=== PATIENT | male | born 2000 | race Caucasian/White ===

== ENCOUNTER 2023-03-10 22:51 | Inpatient (IN) | payer MEDICAID, OTHER ==
[~2023-03-10] VITALS: Ht 185.4 cm; Wt 87.9 kg
[2023-03-10] MEDS ORDERED: ACETAMINOPHEN TAB 650MG DOSE (2X325MG) PO ONE (23:10)
[2023-03-10] MEDS ORDERED: NS 2,600 ML in IV 1 EA IV ONE (23:10)
[2023-03-10] MEDS ORDERED: IBUPROFEN 800 MG TAB PO ONE (23:10)
[2023-03-10] MEDS ORDERED: PIPERACILLIN/TAZOBACTAM SOD 4.5 GM in D5W MINI-BAG PLUS 50 ML IV ONE (23:40)
[2023-03-11] VITALS (8 sets, daily range): BP systolic 90–145; BP diastolic 60–82; TEMP 96.6–99.9; O2SAT 94–100
[2023-03-11 00:20] LABS: ETHYL ALCOHOL (ETHANOL) < 0.003 % (0.000-0.010)
[2023-03-11 00:22] LABS: SALICYLATE LEVEL < 3.0 MG/DL (<30)
[2023-03-11 00:29] LABS: PROCALCITONIN 1.98 ng/ml
[2023-03-11 00:32] LABS: ALBUMIN 1.9 G/DL (3.2-5.2); ALKALINE PHOSPHATASE 94 U/L (46-116); ALT/SGPT 41 U/L (7.0-40); AST/SGOT 67 U/L (<34); BILIRUBIN,TOTAL 0.4 MG/DL (0.3-1.2); BLOOD UREA NITROGEN 17 MG/DL (9-23); CALCIUM LEVEL 8.1 MG/DL (8.5-10.1); CARBON DIOXIDE LEVEL 28 MMOL/L (20-31); CHLORIDE LEVEL 94 MMOL/L (98-107); CREATININE FOR GFR 0.82 MG/DL (0.70-1.30); GLOMERULAR FILTRATION RATE > 60.0 (>60); GLUCOSE, FASTING 123 MG/DL (60-100); POTASSIUM SERUM 3.2 MMOL/L (3.5-5.1); SODIUM LEVEL 130 MMOL/L (136-145); TOTAL PROTEIN 6.6 G/DL (5.7-8.2)
[2023-03-11 00:50] LABS: BASO % 0.2 % (0.0-1.0); EOS % 0.2 % (0.0-3.0); HEMATOCRIT 25.6 % (42.0-52.0); HEMOGLOBIN 8.2 g/dl (13.5-17.5); LYMPH # 1.1 10^3/uL (1.5-5.0); LYMPH % 8.4 % (24.0-44.0); MEAN CORPUSCULAR HEMOGLOBIN 24.8 pg (27.0-33.0); MEAN CORPUSCULAR VOLUME 77.6 fl (80.0-96.0); MONO # 0.7 10^3/uL (0.0-0.8); MONO % 5.4 % (2.0-8.0); NEUTROPHILS # 10.8 10^3/uL (1.5-8.5); NEUTROPHILS % 84.9 % (36.0-66.0); WHITE BLOOD COUNT 12.7 10^3/uL (4.0-10.0)
[2023-03-11 00:51] LABS: PLATELET COUNT, AUTOMATED 98 10^3/uL (150-450)
[2023-03-11 01:11] LABS: BARBITURATES URINE NEGATIVE (NEGATIVE); COCAINE METABOLITE URINE NEGATIVE (NEGATIVE)
[2023-03-11 01:12] LABS: CANNABINOIDS URINE NEGATIVE (NEGATIVE); METHADONE URINE NEGATIVE (NEGATIVE); OPIATES URINE NEGATIVE (NEGATIVE); PHENCYCLIDINE URINE NEGATIVE (NEGATIVE)
[2023-03-11 01:15] LABS: AMPHETAMINES LEVEL URINE POSITIVE (NEGATIVE); BENZODIAZEPINES URINE POSITIVE (NEGATIVE)
[2023-03-11] MEDS ORDERED: VANCOMYCIN HCL 1,250 MG, VIAL MATE ADAPTER 1 EACH in D5W 250 ML IV SCH (02:15)
[2023-03-11] MEDS ORDERED: VANCOMYCIN HCL 1,000 MG, VIAL MATE ADAPTER 1 EACH in D5W 250 ML IV ONE (03:00)
[2023-03-11] MEDS ORDERED: VANCOMYCIN HCL 750 MG, VIAL MATE ADAPTER 1 EACH in D5W 250 ML IV ONE (04:00)
[2023-03-11] MEDS ORDERED: NICOTINE 14 MG/24 HR TRANSDERMAL TD PRN (04:05)
[2023-03-11] MEDS: KCL 10MEQ/100ML SWI (KRUN) 10 MEQ in IV 1 EA IV SCH ×4 (05:30→14:34)
[2023-03-11] MEDS: POTASSIUM CHLORIDE 10MEQ SR TABLET PO ONE ×2 (05:54→06:25)
[2023-03-11 07:04] LABS: BASO % 0.1 % (0.0-1.0); EOS % 0.3 % (0.0-3.0); HEMATOCRIT 23.9 % (42.0-52.0); HEMOGLOBIN 7.6 g/dl (13.5-17.5); LYMPH # 2.1 10^3/uL (1.5-5.0); LYMPH % 13.1 % (24.0-44.0); MEAN CORPUSCULAR HEMOGLOBIN 25.2 pg (27.0-33.0); MEAN CORPUSCULAR HGB CONC 31.8 g/dl (32.0-36.5); MEAN CORPUSCULAR VOLUME 79.1 fl (80.0-96.0); MONO # 1.3 10^3/uL (0.0-0.8); MONO % 8.2 % (2.0-8.0); NEUTROPHILS # 12.1 10^3/uL (1.5-8.5); NEUTROPHILS % 76.7 % (36.0-66.0); RED BLOOD COUNT 3.02 10^6/uL (4.30-6.10); WHITE BLOOD COUNT 15.8 10^3/uL (4.0-10.0)
[2023-03-11 07:10] LABS: PLATELET COUNT, AUTOMATED 89 10^3/uL (150-450)
[2023-03-11 07:56] LABS: HIV 1&2 SCREEN NEGATIVE (NEGATIVE)
[2023-03-11 08:33] LABS: BLOOD UREA NITROGEN 16 MG/DL (9-23); CALCIUM LEVEL 6.8 MG/DL (8.5-10.1); CARBON DIOXIDE LEVEL 28 MMOL/L (20-31); CHLORIDE LEVEL 97 MMOL/L (98-107); CREATININE FOR GFR 0.88 MG/DL (0.70-1.30); GLOMERULAR FILTRATION RATE > 60.0 (>60); GLUCOSE, FASTING 131 MG/DL (60-100); POTASSIUM SERUM 2.4 MMOL/L (3.5-5.1); SODIUM LEVEL 132 MMOL/L (136-145)
[2023-03-11 08:37] LABS: HEPATITIS C VIRUS ABY INDEX > 11.00 INDEX (<0.8)
[2023-03-11] MEDS: NYSTATIN 500,000U/5ML SUSP UDC SS SCH ×4 (08:45→21:59)
[2023-03-11] MEDS ORDERED: HOME MED LIST COMPLETE! XX SCH (09:25)
[2023-03-11] MEDS ORDERED: PIPERACILLIN/TAZOBACTAM SOD 4.5 GM in D5W MINI-BAG PLUS 50 ML IV SCH (10:00)
[2023-03-11] MEDS ORDERED: POTASSIUM CHLORIDE 10MEQ SR TABLET PO ONE ×2 (10:15→11:50)
[2023-03-11] MEDS ORDERED: ISOVUE-370 76% 100ML VIAL As Ordered ONE (11:35)
[2023-03-11 12:28] LABS: MAGNESIUM LEVEL 1.9 MG/DL (1.8-2.4)
[2023-03-11] MEDS ORDERED: LIDOCAINE 1% MDV 20ML VIAL As Ordered ONE (12:53)
[2023-03-11] MEDS ORDERED: VANCOMYCIN HCL 750 MG, VIAL MATE ADAPTER 1 EACH in D5W 250 ML IV SCH (13:00)
[2023-03-11] MEDS ORDERED: VANCOMYCIN HCL 500 MG in D5W MINI-BAG PLUS 100 ML IV SCH (14:00)
[2023-03-11] MEDS ORDERED: HEPARIN SOD (PORCINE) 5000UNITS/ML 1ML VIAL/SYRINGE SC SCH (14:00)
[2023-03-11] MEDS ORDERED: HEPARIN SOD (PORCINE) 5000UNITS/ML 1ML VIAL/SYRINGE IV PRN (14:05)
[2023-03-11] MEDS ORDERED: MORPHINE 4 MG/ML 1ML VIAL IV ONE (14:15)
[2023-03-11] MEDS ORDERED: KCL 10MEQ IN STERILE WATER 100ML As Ordered ONE (14:26)
[2023-03-11] MEDS: VANCOMYCIN HCL 1,000 MG, VIAL MATE ADAPTER 1 EACH in D5W 250 ML IV SCH ×2 (14:34→21:59)
[2023-03-11] MEDS ORDERED: SODIUM CHLORIDE 0.9% INJ 10 ML SYR IV PRN (14:55)
[2023-03-11] MEDS ORDERED: HEPARIN DRIP 25,000 UNITS in IV 1 EA IV SCH (15:00)
[2023-03-11] MEDS ORDERED: HYDROMORPHONE HCL 0.5 MG/ 0.5 ML SYRINGE IV ONE (17:45)
[2023-03-11] MEDS ORDERED: SODIUM CHLORIDE 0.9% INJ 10 ML SYR IV SCH (18:00)
[2023-03-11 18:44] LABS: HEMATOCRIT 24.7 % (42.0-52.0); MEAN CORPUSCULAR HEMOGLOBIN 25.3 pg (27.0-33.0); MEAN CORPUSCULAR HGB CONC 32.4 g/dl (32.0-36.5); MEAN CORPUSCULAR VOLUME 78.2 fl (80.0-96.0); PLATELET COUNT, AUTOMATED 127 10^3/uL (150-450); RED BLOOD COUNT 3.16 10^6/uL (4.30-6.10); WHITE BLOOD COUNT 18.1 10^3/uL (4.0-10.0)
[2023-03-11 18:52] LABS: INR 1.45; PROTHROMBIN TIME 17.2 SECONDS (12.5-14.5)
[2023-03-11 18:53] LABS: PARTIAL THROMBOPLASTIN TIME 31.3 SECONDS (24.8-34.2)
[2023-03-11 18:57] LABS: D-DIMER QUANT 3.18 ug/mL (<0.5)
[2023-03-11 19:11] LABS: LDH LACTATE DEHYDROGENASE 297 U/L (120-246)
[2023-03-11 19:13] LABS: ALBUMIN 1.7 G/DL (3.2-5.2); ALKALINE PHOSPHATASE 91 U/L (46-116); ALT/SGPT 26 U/L (7.0-40); AST/SGOT 32 U/L (<34); BILIRUBIN,DIRECT 0.2 MG/DL (<0.4); BILIRUBIN,TOTAL 0.4 MG/DL (0.3-1.2); BLOOD UREA NITROGEN 12 MG/DL (9-23); CALCIUM LEVEL 7.4 MG/DL (8.5-10.1); CARBON DIOXIDE LEVEL 24 MMOL/L (20-31); CHLORIDE LEVEL 100 MMOL/L (98-107); CREATININE FOR GFR 0.68 MG/DL (0.70-1.30); GLOMERULAR FILTRATION RATE > 60.0 (>60); GLUCOSE, FASTING 130 MG/DL (60-100); POTASSIUM SERUM 3.2 MMOL/L (3.5-5.1); SODIUM LEVEL 133 MMOL/L (136-145); TOTAL PROTEIN 5.8 G/DL (5.7-8.2)
[2023-03-12 04:00] VITALS: BP 106/61; TEMP 98.7; O2SAT 92
[2023-03-12 04:43] LABS: BASO # 0.1 10^3/uL (0.0-0.2); BASO % 0.3 % (0.0-1.0); EOS % 0.1 % (0.0-3.0); HEMATOCRIT 24.6 % (42.0-52.0); LYMPH # 2.5 10^3/uL (1.5-5.0); LYMPH % 13.2 % (24.0-44.0); MEAN CORPUSCULAR HEMOGLOBIN 25.6 pg (27.0-33.0); MEAN CORPUSCULAR HGB CONC 32.5 g/dl (32.0-36.5); MEAN CORPUSCULAR VOLUME 78.8 fl (80.0-96.0); MONO % 9.6 % (2.0-8.0); NEUTROPHILS # 14.2 10^3/uL (1.5-8.5); NEUTROPHILS % 75.2 % (36.0-66.0); PLATELET COUNT, AUTOMATED 133 10^3/uL (150-450); RED BLOOD COUNT 3.12 10^6/uL (4.30-6.10); WHITE BLOOD COUNT 18.9 10^3/uL (4.0-10.0)
[2023-03-12 05:08] LABS: MONO # 1.8 10^3/uL (0.0-0.8)
[2023-03-12 05:25] LABS: ALBUMIN 1.6 G/DL (3.2-5.2); ALKALINE PHOSPHATASE 82 U/L (46-116); ALT/SGPT 22 U/L (7.0-40); AST/SGOT 26 U/L (<34); BILIRUBIN,TOTAL 0.7 MG/DL (0.3-1.2); BLOOD UREA NITROGEN 9 MG/DL (9-23); CALCIUM LEVEL 7.1 MG/DL (8.5-10.1); CARBON DIOXIDE LEVEL 26 MMOL/L (20-31); CHLORIDE LEVEL 98 MMOL/L (98-107); CREATININE FOR GFR 0.72 MG/DL (0.70-1.30); GLOMERULAR FILTRATION RATE > 60.0 (>60); GLUCOSE, FASTING 103 MG/DL (60-100); MAGNESIUM LEVEL 1.6 MG/DL (1.8-2.4); POTASSIUM SERUM 3.2 MMOL/L (3.5-5.1); SODIUM LEVEL 129 MMOL/L (136-145); TOTAL PROTEIN 5.5 G/DL (5.7-8.2)
[2023-03-12] MEDS: VANCOMYCIN HCL 1,000 MG, VIAL MATE ADAPTER 1 EACH in D5W 250 ML IV SCH ×3 (05:58→21:49)
[2023-03-12 08:00] VITALS: BP 102/62; TEMP 97.8; O2SAT 95
[2023-03-12] MEDS ORDERED: MAG SULF 1GM/100ML (MAG RUN) 1 GM in IV 1 EA IV ONE (08:00)
[2023-03-12 08:09] LABS: HEPATITIS B CORE ANTIBODY IGG Negative (Negative)
[2023-03-12] MEDS ORDERED: INFLUENZA QUADRIVALENT PF VACCINE 0.5ML SYRINGE IM.IMMUN ONE (09:00)
[2023-03-12] MEDS: HYDROMORPHONE HCL 0.5 MG/ 0.5 ML SYRINGE IV PRN (10:08)
[2023-03-12] MEDS: KCL 10MEQ/100ML SWI (KRUN) 10 MEQ in IV 1 EA IV SCH ×4 (10:14→16:05)
[2023-03-12] MEDS: NYSTATIN 500,000U/5ML SUSP UDC SS SCH ×4 (10:14→21:49)
[2023-03-12 11:07] LABS: PROCALCITONIN 1.25 ng/ml
[2023-03-12 12:00] VITALS: BP 99/54; TEMP 97.9; O2SAT 100
[2023-03-12 16:00] VITALS: BP 95/59; TEMP 97.8; O2SAT 97
[2023-03-12] MEDS ORDERED: ACETAMINOPHEN *IV* 1,000 MG in IV 1 EA IV ONE (20:20)
[2023-03-12 20:30] VITALS: BP 117/63; TEMP 103.1; O2SAT 95
[2023-03-12 21:50] VITALS: TEMP 101.2
[2023-03-13] VITALS (10 sets, daily range): BP systolic 94–125; BP diastolic 50–66; TEMP 97.3–102.7; O2SAT 94–98
[2023-03-13] MEDS: VANCOMYCIN HCL 1,000 MG, VIAL MATE ADAPTER 1 EACH in D5W 250 ML IV SCH ×2 (05:38→13:43)
[2023-03-13] MEDS: HYDROMORPHONE HCL 0.5 MG/ 0.5 ML SYRINGE IV PRN ×6 (05:43→23:42)
[2023-03-13 06:40] LABS: HEMATOCRIT 25.8 % (42.0-52.0); HEMOGLOBIN 8.4 g/dl (13.5-17.5); MEAN CORPUSCULAR HEMOGLOBIN 25.9 pg (27.0-33.0); MEAN CORPUSCULAR HGB CONC 32.6 g/dl (32.0-36.5); MEAN CORPUSCULAR VOLUME 79.6 fl (80.0-96.0); PLATELET COUNT, AUTOMATED 186 10^3/uL (150-450); RED BLOOD COUNT 3.24 10^6/uL (4.30-6.10); WHITE BLOOD COUNT 15.8 10^3/uL (4.0-10.0)
[2023-03-13 06:43] LABS: BLOOD UREA NITROGEN 8 MG/DL (9-23); CALCIUM LEVEL 7.6 MG/DL (8.5-10.1); CARBON DIOXIDE LEVEL 24 MMOL/L (20-31); CHLORIDE LEVEL 103 MMOL/L (98-107); CREATININE FOR GFR 0.63 MG/DL (0.70-1.30); GLOMERULAR FILTRATION RATE > 60.0 (>60); GLUCOSE, FASTING 141 MG/DL (60-100); MAGNESIUM LEVEL 1.8 MG/DL (1.8-2.4); POTASSIUM SERUM 3.7 MMOL/L (3.5-5.1); SODIUM LEVEL 136 MMOL/L (136-145)
[2023-03-13] MEDS ORDERED: SODIUM CHLORIDE 0.9% INJ 10 ML SYR IV PRN (07:00)
[2023-03-13] MEDS: ACETAMINOPHEN TAB 650MG DOSE (2X325MG) PO PRN ×2 (07:16→19:47)
[2023-03-13 07:40] LABS: ATYPICAL LYMPH 1 % (0-5); BASOPHILS 1 % (0-1); LYMPHOCYTES 8 % (16-44); MONOCYTES 5 % (0-5); NEUTROPHILS 85 % (28-66)
[2023-03-13 07:41] LABS: MICROCYTOSIS 1+; OVALOCYTES 1+
[2023-03-13 07:42] LABS: HYPOCHROMASIA 1+
[2023-03-13 07:43] LABS: PLATELET ESTIMATE NORMAL (NORMAL)
[2023-03-13] MEDS: NYSTATIN 500,000U/5ML SUSP UDC SS SCH ×4 (09:02→19:59)
[2023-03-13] MEDS: ENOXAPARIN 40MG/0.4ML SYRINGE (J1650 PER 10MG) SC SCH (10:31)
[2023-03-13] MEDS ORDERED: ISOVUE-370 76% 100ML VIAL As Ordered ONE (16:16)
[2023-03-13] MEDS: ceFAZolin SOD 2 GM in IV 1 EA IV SCH (18:45)
[2023-03-13] MEDS ORDERED: MICAFUNGIN SODIUM 150 MG in D5W MINI-BAG PLUS 100 ML IV SCH (20:00)
[2023-03-13] MEDS ORDERED: MICAFUNGIN SODIUM 150 MG in D5W 100 ML IV SCH (20:00)
[2023-03-13] MEDS: SODIUM CHLORIDE 0.9% INJ 10 ML SYR IV SCH (23:38)
[2023-03-14] MEDS: ceFAZolin SOD 2 GM in IV 1 EA IV SCH (02:47)
[2023-03-14 02:50] VITALS: TEMP 101.6
[2023-03-14] MEDS: ACETAMINOPHEN TAB 650MG DOSE (2X325MG) PO PRN (02:55)
[2023-03-14] MEDS: HYDROMORPHONE HCL 0.5 MG/ 0.5 ML SYRINGE IV PRN ×3 (02:59→09:46)
[2023-03-14 04:00] VITALS: BP 110/61; TEMP 100.9; O2SAT 93
[2023-03-14] MEDS: SODIUM CHLORIDE 0.9% INJ 10 ML SYR IV SCH (06:06)
[2023-03-14 06:15] LABS: BASO # 0.1 10^3/uL (0.0-0.2); BASO % 0.4 % (0.0-1.0); EOS # 0.1 10^3/uL (0.0-0.5); EOS % 0.7 % (0.0-3.0); HEMATOCRIT 22.2 % (42.0-52.0); HEMOGLOBIN 7.1 g/dl (13.5-17.5); LYMPH # 2.4 10^3/uL (1.5-5.0); LYMPH % 16.8 % (24.0-44.0); MEAN CORPUSCULAR HEMOGLOBIN 25.6 pg (27.0-33.0); MEAN CORPUSCULAR VOLUME 80.1 fl (80.0-96.0); MONO # 1.4 10^3/uL (0.0-0.8); MONO % 10.2 % (2.0-8.0); NEUTROPHILS % 70.9 % (36.0-66.0); PLATELET COUNT, AUTOMATED 209 10^3/uL (150-450); RED BLOOD COUNT 2.77 10^6/uL (4.30-6.10); WHITE BLOOD COUNT 14.1 10^3/uL (4.0-10.0)
[2023-03-14 06:33] LABS: BLOOD UREA NITROGEN 7 MG/DL (9-23); CALCIUM LEVEL 7.5 MG/DL (8.5-10.1); CARBON DIOXIDE LEVEL 28 MMOL/L (20-31); CHLORIDE LEVEL 102 MMOL/L (98-107); CREATININE FOR GFR 0.62 MG/DL (0.70-1.30); GLOMERULAR FILTRATION RATE > 60.0 (>60); GLUCOSE, FASTING 94 MG/DL (60-100); MAGNESIUM LEVEL 1.9 MG/DL (1.8-2.4); POTASSIUM SERUM 3.2 MMOL/L (3.5-5.1); SODIUM LEVEL 133 MMOL/L (136-145)
[2023-03-14 06:45] LABS: PROCALCITONIN 0.52 ng/ml
[2023-03-14 08:23] VITALS: BP 122/60; TEMP 97; O2SAT 98
[2023-03-14] MEDS ORDERED: KCL 10MEQ/100ML SWI (KRUN) 10 MEQ in IV 1 EA IV SCH (09:00)
[2023-03-14] MEDS ORDERED: POTASSIUM CHLORIDE 10% LIQ 20MEQ/15ML UDC PO ONE (09:00)
[2023-03-14] MEDS: NYSTATIN 500,000U/5ML SUSP UDC SS SCH (09:44)
[2023-03-14] MEDS: ENOXAPARIN 40MG/0.4ML SYRINGE (J1650 PER 10MG) SC SCH (09:46)
[2023-03-14] MEDS ORDERED: INFLUENZA QUADRIVALENT PF VACCINE 0.5ML SYRINGE IM.IMMUN ONE (11:00)
== END 2023-03-14 11:41 | disposition short-term general hospital (02) | DRG 720 ==
LOC: M ED 22:51 → EEVIPCON 03-11 02:19 → M ED INP 03-11 02:19 → ENRESERV 03-11 03:35 → M PCU 03-11 04:54
PROVIDERS: ADMIT Internal Medicine; ATTEND Internal Medicine
PROC: 30233N1 Transfusion of Nonautologous Red Blood Cells into Peripheral Vein, Percutaneous Approach (ICD-10-PCS; 2023-03-11)
PROC: 02HV33Z Insertion of Infusion Device into Superior Vena Cava, Percutaneous Approach (ICD-10-PCS; principal; 2023-03-11 12:00)
DX: A41.01 Sepsis due to Methicillin susceptible Staphylococcus aureus (principal); I26.90 Septic pulmonary embolism without acute cor pulmonale; I76 Septic arterial embolism; I33.0 Acute and subacute infective endocarditis; J15.211 Pneumonia due to Methicillin susceptible Staphylococcus aureus; D69.6 Thrombocytopenia, unspecified; E87.1 Hypo-osmolality and hyponatremia; I27.20 Pulmonary hypertension, unspecified; B37.0 Candidal stomatitis; F11.20 Opioid dependence, uncomplicated; F17.210 Nicotine dependence, cigarettes, uncomplicated; D64.9 Anemia, unspecified; R74.01 Elevation of levels of liver transaminase levels; D72.810 Lymphocytopenia; E87.6 Hypokalemia; B18.2 Chronic viral hepatitis C; B97.89 Other viral agents as the cause of diseases classified elsewhere; B97.10 Unspecified enterovirus as the cause of diseases classified elsewhere; R65.20 Severe sepsis without septic shock

== ENCOUNTER 2023-03-25 15:11 | Inpatient (IN) | payer OTHER ==
[~2023-03-25] VITALS: Ht 185.4 cm; Wt 89.8 kg
[2023-03-26 12:56] VITALS: BP 119/82; TEMP 97.9; O2SAT 98
[2023-03-26] MEDS ORDERED: METH-1177 PO ×2 (13:36→15:45)
[2023-03-26] MEDS ORDERED: HOME MED LIST COMPLETE! XX SCH ×2 (13:40→16:05)
[2023-03-26 14:00] VITALS: BP_SYST 112; BP_SYST 122; BP_DIAS 69; BP_DIAS 80; TEMP 98.4; O2SAT 94; O2SAT 97
[2023-03-26] MEDS ORDERED: FURO40TA2 PO (15:45)
[2023-03-26] MEDS ORDERED: [UNRECOGNIZED DRUG - CODE] PO (15:45)
[2023-03-26] MEDS ORDERED: FERR1TAB8 PO (15:45)
[2023-03-26] MEDS ORDERED: GABA-1171 PO (15:45)
[2023-03-26] MEDS ORDERED: DILA2TAB6 PO (15:45)
[2023-03-26] MEDS ORDERED: BACTINJ2 IV (15:45)
[2023-03-26] MEDS ORDERED: ENOX30IN3 SC (15:45)
[2023-03-26] MEDS: NAFCILLIN SOD 2 GM in D5W MINI-BAG PLUS 50 ML IV SCH ×2 (17:04→21:02)
[2023-03-26] MEDS: GABAPENTIN 100 MG CAP PO SCH ×2 (17:05→21:02)
[2023-03-26] MEDS: NORCO, ANEXSIA 5/325MG TABLET (HYDROcodone/ACETAMINOPHEN) PO PRN (17:11)
[2023-03-26] MEDS: guaiFENesin DM LIQ 10ML UD PO PRN (18:16)
[2023-03-26 20:29] VITALS: BP 112/66; TEMP 97.3; O2SAT 96
[2023-03-27] MEDS: NAFCILLIN SOD 2 GM in D5W MINI-BAG PLUS 50 ML IV SCH ×7 (01:03→20:58)
[2023-03-27] MEDS ORDERED: LIDOCAINE 1% SDV 5ML VIAL DILUENT ONE (02:45)
[2023-03-27] MEDS ORDERED: cefTRIAXone SOD 1GM VIAL IM ONE (02:45)
[2023-03-27] MEDS: guaiFENesin DM LIQ 10ML UD PO PRN (03:30)
[2023-03-27] MEDS: NORCO, ANEXSIA 5/325MG TABLET (HYDROcodone/ACETAMINOPHEN) PO PRN ×2 (03:30→18:47)
[2023-03-27 06:01] VITALS: BP 123/80; TEMP 99.1; O2SAT 94
[2023-03-27] MEDS: METHADONE 10MG TAB PO SCH (09:05)
[2023-03-27] MEDS: FUROSEMIDE 40 MG TAB PO SCH (09:05)
[2023-03-27] MEDS: GABAPENTIN 100 MG CAP PO SCH ×4 (09:06→21:00)
[2023-03-27] MEDS: ENOXAPARIN 40MG/0.4ML SYRINGE (J1650 PER 10MG) SC SCH (09:06)
[2023-03-27 09:36] LABS: HEMATOCRIT 27.7 % (42.0-52.0); HEMOGLOBIN 8.4 g/dl (13.5-17.5); MEAN CORPUSCULAR HEMOGLOBIN 25.4 pg (27.0-33.0); MEAN CORPUSCULAR HGB CONC 30.3 g/dl (32.0-36.5); MEAN CORPUSCULAR VOLUME 83.7 fl (80.0-96.0); PLATELET COUNT, AUTOMATED 412 10^3/uL (150-450); RED BLOOD COUNT 3.31 10^6/uL (4.30-6.10); WHITE BLOOD COUNT 10.8 10^3/uL (4.0-10.0)
[2023-03-27 10:09] LABS: BLOOD UREA NITROGEN 13 MG/DL (9-23); CALCIUM LEVEL 7.5 MG/DL (8.5-10.1); CARBON DIOXIDE LEVEL 28 MMOL/L (20-31); CHLORIDE LEVEL 101 MMOL/L (98-107); GLOMERULAR FILTRATION RATE > 60.0 (>60); GLUCOSE, FASTING 95 MG/DL (60-100); POTASSIUM SERUM 3.4 MMOL/L (3.5-5.1); SODIUM LEVEL 136 MMOL/L (136-145)
[2023-03-27 10:21] LABS: PROCALCITONIN 0.11 ng/ml
[2023-03-27 14:00] VITALS: BP 120/81; TEMP 98.1; O2SAT 97
[2023-03-27] MEDS ORDERED: POTASSIUM CHLORIDE 10MEQ SR TABLET PO ONE (14:00)
[2023-03-27 20:00] VITALS: BP 119/80; TEMP 98.6; O2SAT 96
[2023-03-28] MEDS: NAFCILLIN SOD 2 GM in D5W MINI-BAG PLUS 50 ML IV SCH ×6 (01:22→20:36)
[2023-03-28 04:50] VITALS: BP 118/79; TEMP 98.1; O2SAT 98
[2023-03-28 06:41] LABS: ALBUMIN 1.6 G/DL (3.2-5.2); ALKALINE PHOSPHATASE 114 U/L (46-116); ALT/SGPT 10 U/L (7.0-40); AST/SGOT 27 U/L (<34); BILIRUBIN,DIRECT < 0.1 MG/DL (<0.4); BILIRUBIN,TOTAL 0.2 MG/DL (0.3-1.2); BLOOD UREA NITROGEN 14 MG/DL (9-23); CALCIUM LEVEL 7.8 MG/DL (8.5-10.1); CARBON DIOXIDE LEVEL 28 MMOL/L (20-31); CHLORIDE LEVEL 100 MMOL/L (98-107); CREATININE FOR GFR 1.56 MG/DL (0.70-1.30); GLOMERULAR FILTRATION RATE 58.5 (>60); GLUCOSE, FASTING 81 MG/DL (60-100); POTASSIUM SERUM 5.4 MMOL/L (3.5-5.1); SODIUM LEVEL 135 MMOL/L (136-145)
[2023-03-28 07:15] LABS: BASO # 0.1 10^3/uL (0.0-0.2); BASO % 0.4 % (0.0-1.0); EOS # 0.2 10^3/uL (0.0-0.5); EOS % 1.3 % (0.0-3.0); HEMATOCRIT 38.4 % (42.0-52.0); LYMPH # 2.4 10^3/uL (1.5-5.0); LYMPH % 18.9 % (24.0-44.0); MEAN CORPUSCULAR HGB CONC 30.2 g/dl (32.0-36.5); MEAN CORPUSCULAR VOLUME 85.9 fl (80.0-96.0); MONO % 7.5 % (2.0-8.0); NEUTROPHILS # 9.2 10^3/uL (1.5-8.5); NEUTROPHILS % 70.9 % (36.0-66.0); PLATELET COUNT, AUTOMATED 414 10^3/uL (150-450); RED BLOOD COUNT 4.47 10^6/uL (4.30-6.10); WHITE BLOOD COUNT 12.9 10^3/uL (4.0-10.0)
[2023-03-28 07:20] LABS: HEMOGLOBIN 11.6 g/dl (13.5-17.5)
[2023-03-28] MEDS: ENOXAPARIN 40MG/0.4ML SYRINGE (J1650 PER 10MG) SC SCH (08:30)
[2023-03-28] MEDS: NORCO, ANEXSIA 5/325MG TABLET (HYDROcodone/ACETAMINOPHEN) PO PRN (08:31)
[2023-03-28] MEDS: GABAPENTIN 100 MG CAP PO SCH ×3 (08:31→20:36)
[2023-03-28] MEDS: FUROSEMIDE 40 MG TAB PO SCH (08:31)
[2023-03-28] MEDS: METHADONE 10MG TAB PO SCH (08:31)
[2023-03-28 14:00] VITALS: BP 101/74; TEMP 98.1; O2SAT 99
[2023-03-28 14:12] LABS: CALCIUM LEVEL 7.7 MG/DL (8.5-10.1); CREATININE FOR GFR 1.77 MG/DL (0.70-1.30); GLOMERULAR FILTRATION RATE 50.6 (>60); POTASSIUM SERUM 5.1 MMOL/L (3.5-5.1)
[2023-03-28] MEDS ORDERED: NS 1,000 ML IV ONE (16:20)
[2023-03-28 19:59] VITALS: BP 119/79; TEMP 98.2; O2SAT 98
[2023-03-28] MEDS: guaiFENesin DM LIQ 10ML UD PO PRN (20:36)
[2023-03-29] VITALS (8 sets, daily range): BP systolic 118–123; BP diastolic 75–80; TEMP 97.4–100.9; O2SAT 97–99
[2023-03-29] MEDS: NAFCILLIN SOD 2 GM in D5W MINI-BAG PLUS 50 ML IV SCH ×3 (01:35→09:07)
[2023-03-29] MEDS: NORCO, ANEXSIA 5/325MG TABLET (HYDROcodone/ACETAMINOPHEN) PO PRN ×2 (02:10→12:38)
[2023-03-29 03:09] LABS: BASO # 0.1 10^3/uL (0.0-0.2); BASO % 0.4 % (0.0-1.0); EOS # 0.1 10^3/uL (0.0-0.5); EOS % 1.1 % (0.0-3.0); HEMATOCRIT 27.8 % (42.0-52.0); LYMPH # 2.6 10^3/uL (1.5-5.0); LYMPH % 21.4 % (24.0-44.0); MEAN CORPUSCULAR HEMOGLOBIN 25.4 pg (27.0-33.0); MEAN CORPUSCULAR HGB CONC 30.6 g/dl (32.0-36.5); MONO # 1.1 10^3/uL (0.0-0.8); MONO % 8.7 % (2.0-8.0); NEUTROPHILS # 8.2 10^3/uL (1.5-8.5); NEUTROPHILS % 67.7 % (36.0-66.0); PLATELET COUNT, AUTOMATED 410 10^3/uL (150-450); RED BLOOD COUNT 3.35 10^6/uL (4.30-6.10); WHITE BLOOD COUNT 12.1 10^3/uL (4.0-10.0)
[2023-03-29 03:12] LABS: HEMOGLOBIN 8.5 g/dl (13.5-17.5)
[2023-03-29 03:37] LABS: C REACTIVE PROTEIN QUANTITATIV 5.2 MG/DL (<1.0)
[2023-03-29 04:00] LABS: CALCIUM LEVEL 7.4 MG/DL (8.5-10.1); CREATININE FOR GFR 1.74 MG/DL (0.70-1.30); GLOMERULAR FILTRATION RATE 51.6 (>60); POTASSIUM SERUM 3.3 MMOL/L (3.5-5.1)
[2023-03-29] MEDS ORDERED: POTASSIUM CHLORIDE 10MEQ SR TABLET PO ONE (07:40)
[2023-03-29] MEDS: METHADONE 10MG TAB PO SCH (09:07)
[2023-03-29] MEDS: GABAPENTIN 100 MG CAP PO SCH ×3 (09:07→21:11)
[2023-03-29] MEDS: ENOXAPARIN 40MG/0.4ML SYRINGE (J1650 PER 10MG) SC SCH (09:07)
[2023-03-29] MEDS ORDERED: NAFCILLIN SOD 2 GM in D5W MINI-BAG PLUS 50 ML IV SCH (12:00)
[2023-03-29] MEDS: LACTOBACILLUS ACIDOPHILUS CAP (BACID) PO SCH ×3 (12:37→21:11)
[2023-03-29 12:52] LABS: EOS # 0.2 10^3/uL (0.0-0.5)
[2023-03-29 13:17] LABS: COMPLEMENT C3 91.2 MG/DL (82.0-160.0)
[2023-03-29 13:18] LABS: COMPLEMENT C4 18.4 MG/DL (12-36)
[2023-03-29] MEDS: SODIUM CHLORIDE 0.9% INJ 10 ML SYR IV PRN (13:22)
[2023-03-29] MEDS ORDERED: SODIUM CHLORIDE 0.9% INJ 10 ML SYR IV PRN (13:30)
[2023-03-29 15:09] LABS: CREATININE,RANDOM URINE 85.7 MG/DL; TOTAL PROTEIN,RANDOM URINE 244.8 MG/DL (0.0-14.0)
[2023-03-29] MEDS: ceFAZolin SOD 2 GM in IV 1 EA IV SCH (16:57)
[2023-03-29] MEDS: SODIUM CHLORIDE 0.9% INJ 10 ML SYR IV SCH (16:58)
[2023-03-29] MEDS ORDERED: SODIUM CHLORIDE 0.9% INJ 10 ML SYR IV SCH (18:00)
[2023-03-29] MEDS: ONDANSETRON 4MG 2ML VIAL IV PRN (18:18)
[2023-03-30] MEDS: ceFAZolin SOD 2 GM in IV 1 EA IV SCH ×4 (00:09→23:03)
[2023-03-30] MEDS: ONDANSETRON 4MG 2ML VIAL IV PRN ×2 (00:09→08:28)
[2023-03-30 00:49] VITALS: BP 118/78; TEMP 99.5; O2SAT 95
[2023-03-30] MEDS: guaiFENesin DM LIQ 10ML UD PO PRN ×4 (00:56→21:58)
[2023-03-30 04:57] VITALS: BP 119/79; TEMP 99.9; O2SAT 98
[2023-03-30] MEDS: SODIUM CHLORIDE 0.9% INJ 10 ML SYR IV SCH ×2 (06:08→16:43)
[2023-03-30 06:12] LABS: BASO # 0.1 10^3/uL (0.0-0.2); BASO % 0.6 % (0.0-1.0); EOS # 0.1 10^3/uL (0.0-0.5); EOS % 0.9 % (0.0-3.0); HEMATOCRIT 27.5 % (42.0-52.0); HEMOGLOBIN 8.3 g/dl (13.5-17.5); LYMPH # 2.4 10^3/uL (1.5-5.0); LYMPH % 21.8 % (24.0-44.0); MEAN CORPUSCULAR HGB CONC 30.2 g/dl (32.0-36.5); MEAN CORPUSCULAR VOLUME 82.8 fl (80.0-96.0); NEUTROPHILS # 7.3 10^3/uL (1.5-8.5); NEUTROPHILS % 67.1 % (36.0-66.0); PLATELET COUNT, AUTOMATED 380 10^3/uL (150-450); RED BLOOD COUNT 3.32 10^6/uL (4.30-6.10); WHITE BLOOD COUNT 10.9 10^3/uL (4.0-10.0)
[2023-03-30 06:37] LABS: C REACTIVE PROTEIN QUANTITATIV 5.4 MG/DL (<1.0)
[2023-03-30 06:38] LABS: CALCIUM LEVEL 7.4 MG/DL (8.5-10.1); CREATININE FOR GFR 1.75 MG/DL (0.70-1.30); GLOMERULAR FILTRATION RATE 51.2 (>60); POTASSIUM SERUM 3.4 MMOL/L (3.5-5.1)
[2023-03-30 07:00] VITALS: TEMP 98
[2023-03-30] MEDS ORDERED: POTASSIUM CHLORIDE 10MEQ SR TABLET PO ONE (07:45)
[2023-03-30] MEDS: METHADONE 10MG TAB PO SCH (08:22)
[2023-03-30] MEDS: GABAPENTIN 100 MG CAP PO SCH ×3 (08:23→21:59)
[2023-03-30] MEDS: SODIUM CHLORIDE 0.9% INJ 10 ML SYR IV PRN ×2 (08:23→17:46)
[2023-03-30] MEDS: ENOXAPARIN 40MG/0.4ML SYRINGE (J1650 PER 10MG) SC SCH (08:23)
[2023-03-30] MEDS: LACTOBACILLUS ACIDOPHILUS CAP (BACID) PO SCH ×4 (08:25→21:58)
[2023-03-30] MEDS: NORCO, ANEXSIA 5/325MG TABLET (HYDROcodone/ACETAMINOPHEN) PO PRN ×3 (08:28→21:59)
[2023-03-30] MEDS ORDERED: NORCO, ANEXSIA 5/325MG TABLET (HYDROcodone/ACETAMINOPHEN) PO PRN (09:20)
[2023-03-30 14:00] VITALS: BP 117/79; TEMP 98.1; O2SAT 96
[2023-03-30] MEDS ORDERED: NS 1,000 ML IV STA (17:24)
[2023-03-30 19:42] VITALS: BP 114/79; TEMP 97.9; O2SAT 99
[2023-03-30 19:43] VITALS: TEMP 97.9
[2023-03-30] MEDS: MIRTAZAPINE 7.5MG PER 1/2 TABLET PO PRN (22:22)
[2023-03-31] MEDS: SODIUM CHLORIDE 0.9% INJ 10 ML SYR IV PRN ×4 (00:13→09:39)
[2023-03-31 05:00] VITALS: BP 131/93; TEMP 98.8; O2SAT 99
[2023-03-31] MEDS: SODIUM CHLORIDE 0.9% INJ 10 ML SYR IV SCH ×2 (05:06→18:13)
[2023-03-31 07:03] LABS: BASO # 0.1 10^3/uL (0.0-0.2); BASO % 0.6 % (0.0-1.0); EOS # 0.2 10^3/uL (0.0-0.5); EOS % 1.2 % (0.0-3.0); HEMATOCRIT 28.6 % (42.0-52.0); HEMOGLOBIN 8.7 g/dl (13.5-17.5); LYMPH % 16.5 % (24.0-44.0); MEAN CORPUSCULAR HEMOGLOBIN 25.3 pg (27.0-33.0); MEAN CORPUSCULAR HGB CONC 30.4 g/dl (32.0-36.5); MEAN CORPUSCULAR VOLUME 83.1 fl (80.0-96.0); MONO % 8.1 % (2.0-8.0); NEUTROPHILS # 8.9 10^3/uL (1.5-8.5); NEUTROPHILS % 72.9 % (36.0-66.0); PLATELET COUNT, AUTOMATED 396 10^3/uL (150-450); RED BLOOD COUNT 3.44 10^6/uL (4.30-6.10); WHITE BLOOD COUNT 12.2 10^3/uL (4.0-10.0)
[2023-03-31 07:27] LABS: C REACTIVE PROTEIN QUANTITATIV 5.1 MG/DL (<1.0)
[2023-03-31 07:28] LABS: CALCIUM LEVEL 7.6 MG/DL (8.5-10.1); CREATININE FOR GFR 1.68 MG/DL (0.70-1.30); GLOMERULAR FILTRATION RATE 53.7 (>60); POTASSIUM SERUM 3.4 MMOL/L (3.5-5.1)
[2023-03-31] MEDS: ceFAZolin SOD 2 GM in IV 1 EA IV SCH ×2 (08:18→16:56)
[2023-03-31] MEDS: ENOXAPARIN 40MG/0.4ML SYRINGE (J1650 PER 10MG) SC SCH (08:20)
[2023-03-31] MEDS: METHADONE 10MG TAB PO SCH (08:20)
[2023-03-31] MEDS: LACTOBACILLUS ACIDOPHILUS CAP (BACID) PO SCH ×4 (08:20→20:58)
[2023-03-31] MEDS: GABAPENTIN 100 MG CAP PO SCH ×3 (08:20→20:58)
[2023-03-31] MEDS ORDERED: POTASSIUM CHLORIDE 10MEQ SR TABLET PO ONE (09:00)
[2023-03-31 14:00] VITALS: BP 129/86; TEMP 99.1; O2SAT 95
[2023-03-31 21:28] VITALS: BP 124/84; TEMP 98.4; O2SAT 99
[2023-04-01] MEDS: ceFAZolin SOD 2 GM in IV 1 EA IV SCH ×4 (00:34→23:46)
[2023-04-01 05:00] VITALS: BP 119/85; TEMP 99.9; O2SAT 97
[2023-04-01] MEDS: SODIUM CHLORIDE 0.9% INJ 10 ML SYR IV SCH ×2 (05:14→17:58)
[2023-04-01 05:25] LABS: BASO # 0.1 10^3/uL (0.0-0.2); BASO % 0.5 % (0.0-1.0); EOS # 0.2 10^3/uL (0.0-0.5); EOS % 1.3 % (0.0-3.0); HEMATOCRIT 27.6 % (42.0-52.0); HEMOGLOBIN 8.3 g/dl (13.5-17.5); LYMPH # 2.5 10^3/uL (1.5-5.0); LYMPH % 20.4 % (24.0-44.0); MEAN CORPUSCULAR HEMOGLOBIN 24.9 pg (27.0-33.0); MEAN CORPUSCULAR HGB CONC 30.1 g/dl (32.0-36.5); MEAN CORPUSCULAR VOLUME 82.9 fl (80.0-96.0); MONO # 0.9 10^3/uL (0.0-0.8); MONO % 7.3 % (2.0-8.0); NEUTROPHILS # 8.4 10^3/uL (1.5-8.5); NEUTROPHILS % 69.8 % (36.0-66.0); PLATELET COUNT, AUTOMATED 342 10^3/uL (150-450); RED BLOOD COUNT 3.33 10^6/uL (4.30-6.10)
[2023-04-01 05:50] LABS: C REACTIVE PROTEIN QUANTITATIV 5.8 MG/DL (<1.0)
[2023-04-01 05:52] LABS: CALCIUM LEVEL 7.3 MG/DL (8.5-10.1); CREATININE FOR GFR 1.73 MG/DL (0.70-1.30); GLOMERULAR FILTRATION RATE 51.9 (>60); POTASSIUM SERUM 3.6 MMOL/L (3.5-5.1)
[2023-04-01] MEDS: METHADONE 10MG TAB PO SCH (08:26)
[2023-04-01] MEDS: GABAPENTIN 100 MG CAP PO SCH ×3 (08:26→20:17)
[2023-04-01] MEDS: ENOXAPARIN 40MG/0.4ML SYRINGE (J1650 PER 10MG) SC SCH (08:26)
[2023-04-01] MEDS: LACTOBACILLUS ACIDOPHILUS CAP (BACID) PO SCH ×4 (08:26→20:17)
[2023-04-01] MEDS: SODIUM CHLORIDE 0.9% INJ 10 ML SYR IV PRN (10:08)
[2023-04-01 14:00] VITALS: BP 116/85; TEMP 98.6; O2SAT 96
[2023-04-01 20:20] VITALS: BP 115/85; TEMP 98.8; O2SAT 99
[2023-04-01] MEDS: MIRTAZAPINE 7.5MG PER 1/2 TABLET PO PRN (20:25)
[2023-04-02] VITALS (9 sets, daily range): BP systolic 109–114; BP diastolic 70–79; TEMP 98.4–101.9; O2SAT 95–99
[2023-04-02] MEDS: SODIUM CHLORIDE 0.9% INJ 10 ML SYR IV SCH ×2 (05:57→17:43)
[2023-04-02] MEDS: GABAPENTIN 100 MG CAP PO SCH ×3 (08:55→20:06)
[2023-04-02] MEDS: METHADONE 10MG TAB PO SCH (08:55)
[2023-04-02] MEDS: LACTOBACILLUS ACIDOPHILUS CAP (BACID) PO SCH ×4 (08:55→20:06)
[2023-04-02] MEDS: ENOXAPARIN 40MG/0.4ML SYRINGE (J1650 PER 10MG) SC SCH (08:55)
[2023-04-02] MEDS: ceFAZolin SOD 2 GM in IV 1 EA IV SCH ×3 (08:56→23:47)
[2023-04-02] MEDS: SODIUM CHLORIDE 0.9% INJ 10 ML SYR IV PRN ×2 (08:59→10:22)
[2023-04-02 09:24] LABS: BASO # 0.1 10^3/uL (0.0-0.2); BASO % 0.6 % (0.0-1.0); EOS # 0.2 10^3/uL (0.0-0.5); EOS % 1.4 % (0.0-3.0); HEMATOCRIT 24.5 % (42.0-52.0); HEMOGLOBIN 7.4 g/dl (13.5-17.5); LYMPH # 2.3 10^3/uL (1.5-5.0); LYMPH % 21.6 % (24.0-44.0); MEAN CORPUSCULAR HEMOGLOBIN 25.1 pg (27.0-33.0); MEAN CORPUSCULAR HGB CONC 30.2 g/dl (32.0-36.5); MEAN CORPUSCULAR VOLUME 83.1 fl (80.0-96.0); MONO # 0.7 10^3/uL (0.0-0.8); MONO % 6.8 % (2.0-8.0); NEUTROPHILS # 7.2 10^3/uL (1.5-8.5); NEUTROPHILS % 69.1 % (36.0-66.0); PLATELET COUNT, AUTOMATED 278 10^3/uL (150-450); RED BLOOD COUNT 2.95 10^6/uL (4.30-6.10); WHITE BLOOD COUNT 10.5 10^3/uL (4.0-10.0)
[2023-04-02 10:01] LABS: CALCIUM LEVEL 7.2 MG/DL (8.5-10.1); CREATININE FOR GFR 1.72 MG/DL (0.70-1.30); GLOMERULAR FILTRATION RATE 52.3 (>60); POTASSIUM SERUM 3.2 MMOL/L (3.5-5.1)
[2023-04-02] MEDS ORDERED: POTASSIUM CHLORIDE 10MEQ SR TABLET PO ONE (11:55)
[2023-04-02 12:51] LABS: PERCENT SATURATION 3.5 % (19.7-50.0)
[2023-04-02 12:53] LABS: FERRITIN 196.1 NG/ML (10.5-307.3)
[2023-04-02 12:54] LABS: FOLATE 4.5 NG/ML (>5.4)
[2023-04-02 18:14] LABS: HEMATOCRIT 28.9 % (42.0-52.0); HEMOGLOBIN 8.8 g/dl (13.5-17.5)
[2023-04-02] MEDS: MIRTAZAPINE 15 MG TAB PO PRN (20:06)
[2023-04-02] MEDS: ACETAMINOPHEN TAB 650MG DOSE (2X325MG) PO PRN (21:23)
[2023-04-03 00:48] VITALS: TEMP 99.3
[2023-04-03] MEDS: SODIUM CHLORIDE 0.9% INJ 10 ML SYR IV SCH ×2 (05:05→16:46)
[2023-04-03 05:14] VITALS: BP 116/80; TEMP 98.9; O2SAT 96
[2023-04-03 05:22] LABS: BASO # 0.1 10^3/uL (0.0-0.2); BASO % 0.8 % (0.0-1.0); EOS # 0.3 10^3/uL (0.0-0.5); EOS % 2.6 % (0.0-3.0); HEMATOCRIT 26.2 % (42.0-52.0); HEMOGLOBIN 7.9 g/dl (13.5-17.5); LYMPH # 2.4 10^3/uL (1.5-5.0); LYMPH % 24.6 % (24.0-44.0); MEAN CORPUSCULAR HEMOGLOBIN 25.3 pg (27.0-33.0); MEAN CORPUSCULAR HGB CONC 30.2 g/dl (32.0-36.5); MONO # 0.8 10^3/uL (0.0-0.8); MONO % 8.5 % (2.0-8.0); NEUTROPHILS # 6.2 10^3/uL (1.5-8.5); NEUTROPHILS % 62.8 % (36.0-66.0); PLATELET COUNT, AUTOMATED 284 10^3/uL (150-450); RED BLOOD COUNT 3.12 10^6/uL (4.30-6.10); WHITE BLOOD COUNT 9.9 10^3/uL (4.0-10.0)
[2023-04-03 05:55] LABS: BLOOD UREA NITROGEN 19 MG/DL (9-23); CALCIUM LEVEL 7.6 MG/DL (8.5-10.1); CARBON DIOXIDE LEVEL 27 MMOL/L (20-31); CHLORIDE LEVEL 107 MMOL/L (98-107); CREATININE FOR GFR 1.79 MG/DL (0.70-1.30); GLOMERULAR FILTRATION RATE 49.9 (>60); GLUCOSE, FASTING 85 MG/DL (60-100); POTASSIUM SERUM 3.6 MMOL/L (3.5-5.1); SODIUM LEVEL 139 MMOL/L (136-145)
[2023-04-03 08:22] LABS: ALBUMIN 1.2 G/DL (3.2-5.2); ALKALINE PHOSPHATASE 83 U/L (46-116); ALT/SGPT < 9 U/L (7.0-40); AST/SGOT 8 U/L (<34); BILIRUBIN,DIRECT < 0.1 MG/DL (<0.4); BILIRUBIN,TOTAL 0.2 MG/DL (0.3-1.2); TOTAL PROTEIN 5.6 G/DL (5.7-8.2)
[2023-04-03] MEDS: ceFAZolin SOD 2 GM in IV 1 EA IV SCH ×2 (09:18→16:42)
[2023-04-03] MEDS: ENOXAPARIN 40MG/0.4ML SYRINGE (J1650 PER 10MG) SC SCH (09:20)
[2023-04-03] MEDS: SODIUM CHLORIDE 0.9% INJ 10 ML SYR IV PRN (09:21)
[2023-04-03] MEDS: METHADONE 10MG TAB PO SCH (09:22)
[2023-04-03] MEDS: FOLIC ACID 1MG TAB PO SCH (09:22)
[2023-04-03] MEDS: LACTOBACILLUS ACIDOPHILUS CAP (BACID) PO SCH ×4 (09:22→20:37)
[2023-04-03] MEDS: GABAPENTIN 100 MG CAP PO SCH ×3 (09:22→20:37)
[2023-04-03] MEDS: FERROUS SULFATE 325MG TAB PO SCH (13:03)
[2023-04-03 14:00] VITALS: BP 115/77; TEMP 98.4; O2SAT 95
[2023-04-03] MEDS ORDERED: FUROSEMIDE 40MG/4ML VIAL IV ONE (15:50)
[2023-04-03 16:49] VITALS: BP 111/72
[2023-04-03] MEDS: MIRTAZAPINE 15 MG TAB PO PRN (20:37)
[2023-04-03 20:45] VITALS: BP 119/77; TEMP 99.6; O2SAT 95
[2023-04-04] MEDS: ceFAZolin SOD 2 GM in IV 1 EA IV SCH ×4 (00:15→23:55)
[2023-04-04 05:08] VITALS: BP 119/78; TEMP 100; O2SAT 96
[2023-04-04] MEDS: SODIUM CHLORIDE 0.9% INJ 10 ML SYR IV SCH ×2 (05:53→16:59)
[2023-04-04] MEDS: ENOXAPARIN 40MG/0.4ML SYRINGE (J1650 PER 10MG) SC SCH (08:25)
[2023-04-04] MEDS: METHADONE 10MG TAB PO SCH (08:26)
[2023-04-04] MEDS: SODIUM CHLORIDE 0.9% INJ 10 ML SYR IV PRN (08:26)
[2023-04-04] MEDS: GABAPENTIN 100 MG CAP PO SCH ×3 (08:26→22:02)
[2023-04-04] MEDS: FOLIC ACID 1MG TAB PO SCH (08:26)
[2023-04-04] MEDS: LACTOBACILLUS ACIDOPHILUS CAP (BACID) PO SCH ×4 (08:26→22:02)
[2023-04-04 08:36] LABS: BASO # 0.1 10^3/uL (0.0-0.2); BASO % 0.5 % (0.0-1.0); EOS # 0.2 10^3/uL (0.0-0.5); EOS % 2.3 % (0.0-3.0); HEMATOCRIT 26.3 % (42.0-52.0); LYMPH # 2.3 10^3/uL (1.5-5.0); LYMPH % 22.1 % (24.0-44.0); MEAN CORPUSCULAR HEMOGLOBIN 25.5 pg (27.0-33.0); MEAN CORPUSCULAR HGB CONC 30.4 g/dl (32.0-36.5); MEAN CORPUSCULAR VOLUME 83.8 fl (80.0-96.0); MONO # 0.8 10^3/uL (0.0-0.8); MONO % 7.9 % (2.0-8.0); NEUTROPHILS # 6.9 10^3/uL (1.5-8.5); NEUTROPHILS % 66.6 % (36.0-66.0); PLATELET COUNT, AUTOMATED 299 10^3/uL (150-450); RED BLOOD COUNT 3.14 10^6/uL (4.30-6.10); WHITE BLOOD COUNT 10.3 10^3/uL (4.0-10.0)
[2023-04-04 09:01] LABS: C REACTIVE PROTEIN QUANTITATIV 5.7 MG/DL (<1.0)
[2023-04-04 09:03] LABS: CALCIUM LEVEL 7.6 MG/DL (8.5-10.1); CREATININE FOR GFR 1.84 MG/DL (0.70-1.30); GLOMERULAR FILTRATION RATE 48.4 (>60); POTASSIUM SERUM 3.6 MMOL/L (3.5-5.1)
[2023-04-04] MEDS ORDERED: FUROSEMIDE 20 MG TAB PO ONE (12:05)
[2023-04-04] MEDS ORDERED: POTASSIUM CHLORIDE 10MEQ SR TABLET PO ONE (13:00)
[2023-04-04 14:00] VITALS: BP 111/76; TEMP 100.9; O2SAT 96
[2023-04-04 17:05] VITALS: TEMP 99.7
[2023-04-04 20:00] VITALS: BP 111/70; TEMP 99; O2SAT 96
[2023-04-04] MEDS: MIRTAZAPINE 15 MG TAB PO PRN (22:06)
[2023-04-05 06:00] VITALS: BP 116/78; TEMP 97.1; O2SAT 98
[2023-04-05 06:28] LABS: BASO # 0.1 10^3/uL (0.0-0.2); BASO % 0.7 % (0.0-1.0); EOS # 0.3 10^3/uL (0.0-0.5); EOS % 2.6 % (0.0-3.0); HEMATOCRIT 28.7 % (42.0-52.0); HEMOGLOBIN 8.5 g/dl (13.5-17.5); LYMPH # 2.3 10^3/uL (1.5-5.0); LYMPH % 22.1 % (24.0-44.0); MEAN CORPUSCULAR HEMOGLOBIN 25.1 pg (27.0-33.0); MEAN CORPUSCULAR HGB CONC 29.6 g/dl (32.0-36.5); MEAN CORPUSCULAR VOLUME 84.7 fl (80.0-96.0); MONO # 0.9 10^3/uL (0.0-0.8); MONO % 8.6 % (2.0-8.0); NEUTROPHILS # 6.8 10^3/uL (1.5-8.5); NEUTROPHILS % 65.4 % (36.0-66.0); PLATELET COUNT, AUTOMATED 308 10^3/uL (150-450); RED BLOOD COUNT 3.39 10^6/uL (4.30-6.10); WHITE BLOOD COUNT 10.3 10^3/uL (4.0-10.0)
[2023-04-05 06:49] LABS: ALBUMIN 1.3 G/DL (3.2-5.2); CALCIUM LEVEL 7.6 MG/DL (8.5-10.1); CREATININE FOR GFR 1.93 MG/DL (0.70-1.30); GLOMERULAR FILTRATION RATE 45.8 (>60); MAGNESIUM LEVEL 1.7 MG/DL (1.8-2.4); PHOSPHORUS LEVEL 4.6 MG/DL (2.5-4.9); POTASSIUM SERUM 3.5 MMOL/L (3.5-5.1)
[2023-04-05] MEDS: SODIUM CHLORIDE 0.9% INJ 10 ML SYR IV SCH ×2 (07:06→17:31)
[2023-04-05] MEDS ORDERED: POTASSIUM CHLORIDE 10MEQ SR TABLET PO ONE (07:45)
[2023-04-05 08:16] LABS: C REACTIVE PROTEIN QUANTITATIV 4.9 MG/DL (<1.0)
[2023-04-05] MEDS: LACTOBACILLUS ACIDOPHILUS CAP (BACID) PO SCH ×4 (08:36→21:26)
[2023-04-05] MEDS: GABAPENTIN 100 MG CAP PO SCH ×3 (08:36→21:27)
[2023-04-05] MEDS: FUROSEMIDE 20 MG TAB PO SCH (08:36)
[2023-04-05] MEDS: FERROUS SULFATE 325MG TAB PO SCH (08:36)
[2023-04-05] MEDS: FOLIC ACID 1MG TAB PO SCH (08:36)
[2023-04-05] MEDS: METHADONE 10MG TAB PO SCH (08:36)
[2023-04-05] MEDS: ceFAZolin SOD 2 GM in IV 1 EA IV SCH ×2 (08:37→16:19)
[2023-04-05] MEDS: ENOXAPARIN 40MG/0.4ML SYRINGE (J1650 PER 10MG) SC SCH (08:38)
[2023-04-05] MEDS: MAG SULF 1GM/100ML (MAG RUN) 100 ML IV SCH ×2 (09:43→11:47)
[2023-04-05 14:00] VITALS: BP 121/82; TEMP 98.8; O2SAT 95
[2023-04-05 20:58] VITALS: BP 126/80; TEMP 98.8; O2SAT 96
[2023-04-05] MEDS: MIRTAZAPINE 15 MG TAB PO PRN (21:26)
[2023-04-06] MEDS: ceFAZolin SOD 2 GM in IV 1 EA IV SCH ×3 (00:59→16:38)
[2023-04-06 06:32] VITALS: BP 119/79; TEMP 99; O2SAT 98
[2023-04-06] MEDS: SODIUM CHLORIDE 0.9% INJ 10 ML SYR IV SCH ×2 (06:49→17:58)
[2023-04-06] MEDS: LACTOBACILLUS ACIDOPHILUS CAP (BACID) PO SCH ×4 (07:50→20:08)
[2023-04-06] MEDS: GABAPENTIN 100 MG CAP PO SCH ×3 (07:50→20:09)
[2023-04-06] MEDS: FOLIC ACID 1MG TAB PO SCH (07:51)
[2023-04-06] MEDS: METHADONE 10MG TAB PO SCH (07:51)
[2023-04-06] MEDS: FUROSEMIDE 20 MG TAB PO SCH (07:51)
[2023-04-06] MEDS: ENOXAPARIN 40MG/0.4ML SYRINGE (J1650 PER 10MG) SC SCH (07:51)
[2023-04-06 08:30] LABS: BASO # 0.1 10^3/uL (0.0-0.2); BASO % 0.8 % (0.0-1.0); EOS # 0.2 10^3/uL (0.0-0.5); EOS % 1.9 % (0.0-3.0); HEMATOCRIT 27.6 % (42.0-52.0); HEMOGLOBIN 8.2 g/dl (13.5-17.5); LYMPH # 2.2 10^3/uL (1.5-5.0); LYMPH % 21.1 % (24.0-44.0); MEAN CORPUSCULAR HEMOGLOBIN 24.8 pg (27.0-33.0); MEAN CORPUSCULAR HGB CONC 29.7 g/dl (32.0-36.5); MEAN CORPUSCULAR VOLUME 83.6 fl (80.0-96.0); MONO # 0.8 10^3/uL (0.0-0.8); MONO % 7.8 % (2.0-8.0); NEUTROPHILS % 67.6 % (36.0-66.0); PLATELET COUNT, AUTOMATED 350 10^3/uL (150-450); WHITE BLOOD COUNT 10.3 10^3/uL (4.0-10.0)
[2023-04-06 08:53] LABS: ALBUMIN 1.4 G/DL (3.2-5.2); CALCIUM LEVEL 7.6 MG/DL (8.5-10.1); CREATININE FOR GFR 1.91 MG/DL (0.70-1.30); GLOMERULAR FILTRATION RATE 46.3 (>60); MAGNESIUM LEVEL 1.9 MG/DL (1.8-2.4); PHOSPHORUS LEVEL 4.4 MG/DL (2.5-4.9); POTASSIUM SERUM 3.8 MMOL/L (3.5-5.1)
[2023-04-06 14:00] VITALS: BP 118/79; TEMP 98.2; O2SAT 97
[2023-04-06 18:30] VITALS: BP 115/75; TEMP 98.4; O2SAT 99
[2023-04-06] MEDS: MIRTAZAPINE 15 MG TAB PO PRN (20:09)
[2023-04-07] MEDS: ceFAZolin SOD 2 GM in IV 1 EA IV SCH ×3 (00:49→16:50)
[2023-04-07] MEDS: SODIUM CHLORIDE 0.9% INJ 10 ML SYR IV PRN (01:47)
[2023-04-07] MEDS: SODIUM CHLORIDE 0.9% INJ 10 ML SYR IV SCH ×2 (06:03→17:44)
[2023-04-07 06:38] VITALS: BP 115/76; TEMP 98.2; O2SAT 94
[2023-04-07 06:59] LABS: ALBUMIN 1.1 G/DL (3.2-5.2); CALCIUM LEVEL 6.6 MG/DL (8.5-10.1); CREATININE FOR GFR 1.72 MG/DL (0.70-1.30); GLOMERULAR FILTRATION RATE 52.3 (>60); MAGNESIUM LEVEL 1.6 MG/DL (1.8-2.4); PHOSPHORUS LEVEL 3.8 MG/DL (2.5-4.9); POTASSIUM SERUM 3.2 MMOL/L (3.5-5.1)
[2023-04-07 07:48] LABS: TOTAL PROTEIN 24 HOUR URINE 6111.6 MG/24HR (50-80); URINE TOTAL PROTEIN 277.8 MG/DL (0-14)
[2023-04-07] MEDS: LACTOBACILLUS ACIDOPHILUS CAP (BACID) PO SCH ×4 (08:17→20:28)
[2023-04-07] MEDS: FERROUS SULFATE 325MG TAB PO SCH (08:17)
[2023-04-07] MEDS: FOLIC ACID 1MG TAB PO SCH (08:17)
[2023-04-07] MEDS: METHADONE 10MG TAB PO SCH (08:17)
[2023-04-07] MEDS: GABAPENTIN 100 MG CAP PO SCH ×3 (08:17→20:28)
[2023-04-07] MEDS: MAGNESIUM OXIDE 400MG TAB (MAG-OX) PO SCH ×2 (08:18→20:28)
[2023-04-07] MEDS: FUROSEMIDE 20 MG TAB PO SCH (08:18)
[2023-04-07] MEDS: ENOXAPARIN 40MG/0.4ML SYRINGE (J1650 PER 10MG) SC SCH (08:18)
[2023-04-07] MEDS ORDERED: POTASSIUM CHLORIDE 10MEQ SR TABLET PO ONE (09:00)
[2023-04-07 14:00] VITALS: BP 116/76; TEMP 98.2; O2SAT 97
[2023-04-07] MEDS: MIRTAZAPINE 15 MG TAB PO PRN (20:28)
[2023-04-07 21:36] VITALS: BP 115/76; TEMP 98.8; O2SAT 94
[2023-04-08] MEDS: ceFAZolin SOD 2 GM in IV 1 EA IV SCH ×3 (00:48→16:50)
[2023-04-08 05:10] VITALS: BP 117/79; TEMP 98.8; O2SAT 96
[2023-04-08] MEDS: SODIUM CHLORIDE 0.9% INJ 10 ML SYR IV SCH ×2 (05:36→17:58)
[2023-04-08] MEDS: SODIUM CHLORIDE 0.9% INJ 10 ML SYR IV PRN (05:37)
[2023-04-08 06:27] LABS: ALBUMIN 1.4 G/DL (3.2-5.2); CALCIUM LEVEL 7.9 MG/DL (8.5-10.1); CREATININE FOR GFR 2.1 MG/DL (0.70-1.30); GLOMERULAR FILTRATION RATE 41.5 (>60); MAGNESIUM LEVEL 1.9 MG/DL (1.8-2.4); PHOSPHORUS LEVEL 4.2 MG/DL (2.5-4.9); POTASSIUM SERUM 3.9 MMOL/L (3.5-5.1)
[2023-04-08] MEDS: FOLIC ACID 1MG TAB PO SCH (08:32)
[2023-04-08] MEDS: GABAPENTIN 100 MG CAP PO SCH ×3 (08:32→21:27)
[2023-04-08] MEDS: LACTOBACILLUS ACIDOPHILUS CAP (BACID) PO SCH ×4 (08:32→21:27)
[2023-04-08] MEDS: ENOXAPARIN 40MG/0.4ML SYRINGE (J1650 PER 10MG) SC SCH (08:32)
[2023-04-08] MEDS: MAGNESIUM OXIDE 400MG TAB (MAG-OX) PO SCH ×2 (08:32→21:28)
[2023-04-08] MEDS: POTASSIUM CHLORIDE 10MEQ SR TABLET PO SCH (08:33)
[2023-04-08] MEDS: FUROSEMIDE 20 MG TAB PO SCH (08:33)
[2023-04-08] MEDS: METHADONE 10MG TAB PO SCH (08:33)
[2023-04-08 11:11] LABS: C REACTIVE PROTEIN QUANTITATIV 4.3 MG/DL (<1.0)
[2023-04-08 14:00] VITALS: BP 121/77; TEMP 98.8; O2SAT 95
[2023-04-08 18:45] VITALS: BP 118/76; TEMP 98.6; O2SAT 96
[2023-04-08 20:49] VITALS: BP 131/82; TEMP 97.3; O2SAT 97
[2023-04-08] MEDS: MIRTAZAPINE 15 MG TAB PO PRN (21:27)
[2023-04-09] MEDS: ceFAZolin SOD 2 GM in IV 1 EA IV SCH ×4 (01:00→23:48)
[2023-04-09] MEDS: SODIUM CHLORIDE 0.9% INJ 10 ML SYR IV SCH ×2 (05:20→15:28)
[2023-04-09 06:00] VITALS: BP 116/73; TEMP 98.1; O2SAT 94
[2023-04-09] MEDS: POTASSIUM CHLORIDE 10MEQ SR TABLET PO SCH (08:22)
[2023-04-09] MEDS: MAGNESIUM OXIDE 400MG TAB (MAG-OX) PO SCH ×2 (08:22→20:12)
[2023-04-09] MEDS: LACTOBACILLUS ACIDOPHILUS CAP (BACID) PO SCH ×4 (08:22→20:12)
[2023-04-09] MEDS: GABAPENTIN 100 MG CAP PO SCH ×3 (08:23→20:12)
[2023-04-09] MEDS: METHADONE 10MG TAB PO SCH (08:23)
[2023-04-09] MEDS: FUROSEMIDE 20 MG TAB PO SCH (08:23)
[2023-04-09] MEDS: ENOXAPARIN 40MG/0.4ML SYRINGE (J1650 PER 10MG) SC SCH (08:23)
[2023-04-09] MEDS: FERROUS SULFATE 325MG TAB PO SCH (08:23)
[2023-04-09] MEDS: FOLIC ACID 1MG TAB PO SCH (08:23)
[2023-04-09] MEDS: SODIUM CHLORIDE 0.9% INJ 10 ML SYR IV PRN (08:24)
[2023-04-09 14:00] VITALS: BP 125/84; TEMP 98.6; O2SAT 99
[2023-04-09 20:11] VITALS: BP 111/78; TEMP 97.6; O2SAT 97
[2023-04-09] MEDS: MIRTAZAPINE 15 MG TAB PO PRN (20:12)
[2023-04-10] MEDS: SODIUM CHLORIDE 0.9% INJ 10 ML SYR IV SCH ×2 (05:37→17:46)
[2023-04-10 06:00] VITALS: BP 120/70; TEMP 98.4; O2SAT 98
[2023-04-10] MEDS: ceFAZolin SOD 2 GM in IV 1 EA IV SCH ×2 (09:01→16:49)
[2023-04-10] MEDS: ENOXAPARIN 40MG/0.4ML SYRINGE (J1650 PER 10MG) SC SCH (09:01)
[2023-04-10] MEDS: LACTOBACILLUS ACIDOPHILUS CAP (BACID) PO SCH ×4 (09:02→20:32)
[2023-04-10] MEDS: METHADONE 10MG TAB PO SCH (09:02)
[2023-04-10] MEDS: POTASSIUM CHLORIDE 10MEQ SR TABLET PO SCH (09:02)
[2023-04-10] MEDS: FUROSEMIDE 20 MG TAB PO SCH (09:02)
[2023-04-10] MEDS: GABAPENTIN 100 MG CAP PO SCH ×3 (09:02→20:32)
[2023-04-10] MEDS: FOLIC ACID 1MG TAB PO SCH (09:02)
[2023-04-10] MEDS: MAGNESIUM OXIDE 400MG TAB (MAG-OX) PO SCH ×2 (09:04→20:32)
[2023-04-10] MEDS: SODIUM CHLORIDE 0.9% INJ 10 ML SYR IV PRN (10:06)
[2023-04-10 14:00] VITALS: BP 113/75; TEMP 97; O2SAT 96
[2023-04-10] MEDS: MIRTAZAPINE 15 MG TAB PO PRN (20:32)
[2023-04-10 20:47] VITALS: BP 129/86; TEMP 97.9; O2SAT 99
[2023-04-11] VITALS (7 sets, daily range): BP systolic 110–134; BP diastolic 74–97; TEMP 97.9–98.8; O2SAT 92–98
[2023-04-11] MEDS: ceFAZolin SOD 2 GM in IV 1 EA IV SCH ×3 (00:07→16:01)
[2023-04-11] MEDS: SODIUM CHLORIDE 0.9% INJ 10 ML SYR IV SCH ×2 (05:43→17:38)
[2023-04-11 06:13] LABS: BASO % 0.5 % (0.0-1.0); EOS # 0.3 10^3/uL (0.0-0.5); HEMATOCRIT 24.8 % (42.0-52.0); HEMOGLOBIN 7.4 g/dl (13.5-17.5); LYMPH # 2.3 10^3/uL (1.5-5.0); LYMPH % 26.3 % (24.0-44.0); MEAN CORPUSCULAR HEMOGLOBIN 24.8 pg (27.0-33.0); MEAN CORPUSCULAR HGB CONC 29.8 g/dl (32.0-36.5); MEAN CORPUSCULAR VOLUME 83.2 fl (80.0-96.0); MONO # 0.7 10^3/uL (0.0-0.8); MONO % 8.1 % (2.0-8.0); NEUTROPHILS # 5.4 10^3/uL (1.5-8.5); NEUTROPHILS % 61.6 % (36.0-66.0); PLATELET COUNT, AUTOMATED 287 10^3/uL (150-450); RED BLOOD COUNT 2.98 10^6/uL (4.30-6.10); WHITE BLOOD COUNT 8.7 10^3/uL (4.0-10.0)
[2023-04-11 06:26] LABS: ERYTHROCYTE SEDIMENTATION RATE 59 mm/hr (0-15)
[2023-04-11 06:35] LABS: C REACTIVE PROTEIN QUANTITATIV 3.5 MG/DL (<1.0)
[2023-04-11 06:36] LABS: ALBUMIN 1.3 G/DL (3.2-5.2); CALCIUM LEVEL 7.6 MG/DL (8.5-10.1); CREATININE FOR GFR 2.2 MG/DL (0.70-1.30); GLOMERULAR FILTRATION RATE 39.3 (>60); PHOSPHORUS LEVEL 4.4 MG/DL (2.5-4.9)
[2023-04-11] MEDS: LACTOBACILLUS ACIDOPHILUS CAP (BACID) PO SCH ×4 (09:19→20:40)
[2023-04-11] MEDS: MAGNESIUM OXIDE 400MG TAB (MAG-OX) PO SCH ×2 (09:19→20:40)
[2023-04-11] MEDS: METHADONE 10MG TAB PO SCH (09:19)
[2023-04-11] MEDS: GABAPENTIN 100 MG CAP PO SCH ×3 (09:20→20:40)
[2023-04-11] MEDS: POTASSIUM CHLORIDE 10MEQ SR TABLET PO SCH (09:20)
[2023-04-11] MEDS: FERROUS SULFATE 325MG TAB PO SCH (09:20)
[2023-04-11] MEDS: FOLIC ACID 1MG TAB PO SCH (09:20)
[2023-04-11] MEDS: FUROSEMIDE 20 MG TAB PO SCH (09:20)
[2023-04-11] MEDS: ENOXAPARIN 40MG/0.4ML SYRINGE (J1650 PER 10MG) SC SCH (09:21)
[2023-04-11] MEDS ORDERED: DARBEPOETIN 100MCG/0.5ML *NON-DIALYSIS* SYRINGE SC ONE (11:00)
[2023-04-11] MEDS: ACETAMINOPHEN TAB 650MG DOSE (2X325MG) PO PRN (13:46)
[2023-04-11] MEDS: SODIUM CHLORIDE 0.9% INJ 10 ML SYR IV PRN (17:18)
[2023-04-11] MEDS: MIRTAZAPINE 15 MG TAB PO PRN (20:40)
[2023-04-12] MEDS: ceFAZolin SOD 2 GM in IV 1 EA IV SCH ×2 (00:09→08:48)
[2023-04-12] MEDS: SODIUM CHLORIDE 0.9% INJ 10 ML SYR IV SCH (05:35)
[2023-04-12 05:51] LABS: BASO # 0.1 10^3/uL (0.0-0.2); BASO % 0.7 % (0.0-1.0); EOS # 0.3 10^3/uL (0.0-0.5); EOS % 3.3 % (0.0-3.0); HEMATOCRIT 27.5 % (42.0-52.0); HEMOGLOBIN 8.2 g/dl (13.5-17.5); LYMPH # 2.2 10^3/uL (1.5-5.0); LYMPH % 23.3 % (24.0-44.0); MEAN CORPUSCULAR HEMOGLOBIN 25.3 pg (27.0-33.0); MEAN CORPUSCULAR HGB CONC 29.8 g/dl (32.0-36.5); MEAN CORPUSCULAR VOLUME 84.9 fl (80.0-96.0); MONO # 0.8 10^3/uL (0.0-0.8); MONO % 8.1 % (2.0-8.0); NEUTROPHILS % 64.2 % (36.0-66.0); PLATELET COUNT, AUTOMATED 288 10^3/uL (150-450); RED BLOOD COUNT 3.24 10^6/uL (4.30-6.10); WHITE BLOOD COUNT 9.4 10^3/uL (4.0-10.0)
[2023-04-12 06:00] VITALS: BP 133/89; TEMP 98; O2SAT 97
[2023-04-12 06:23] LABS: C REACTIVE PROTEIN QUANTITATIV 3.6 MG/DL (<1.0)
[2023-04-12 06:24] LABS: ALBUMIN 1.3 G/DL (3.2-5.2); CALCIUM LEVEL 7.7 MG/DL (8.5-10.1); CREATININE FOR GFR 2.21 MG/DL (0.70-1.30); GLOMERULAR FILTRATION RATE 39.1 (>60); MAGNESIUM LEVEL 2.1 MG/DL (1.8-2.4); PHOSPHORUS LEVEL 4.5 MG/DL (2.5-4.9)
[2023-04-12] MEDS: ENOXAPARIN 40MG/0.4ML SYRINGE (J1650 PER 10MG) SC SCH (08:46)
[2023-04-12] MEDS: POTASSIUM CHLORIDE 10MEQ SR TABLET PO SCH (08:47)
[2023-04-12] MEDS: GABAPENTIN 100 MG CAP PO SCH (08:47)
[2023-04-12] MEDS: FOLIC ACID 1MG TAB PO SCH (08:47)
[2023-04-12] MEDS: FUROSEMIDE 20 MG TAB PO SCH (08:47)
[2023-04-12] MEDS: METHADONE 10MG TAB PO SCH (08:47)
[2023-04-12] MEDS: LACTOBACILLUS ACIDOPHILUS CAP (BACID) PO SCH ×2 (08:47→11:36)
[2023-04-12] MEDS: MAGNESIUM OXIDE 400MG TAB (MAG-OX) PO SCH (08:48)
[2023-04-12] MEDS ORDERED: RISATAB3 PO (08:55)
[2023-04-12] MEDS ORDERED: FURO20TA2 PO (08:55)
[2023-04-12] MEDS ORDERED: POTA-136 PO (08:55)
[2023-04-12] MEDS ORDERED: MAGN400T2 PO (08:55)
[2023-04-12] MEDS ORDERED: FERR1TAB8 PO (08:55)
[2023-04-12] MEDS ORDERED: FOLI1TAB11 PO (08:55)
[2023-04-13] MEDS ORDERED: GABA-1171 PO (10:35)
== END 2023-04-12 12:53 | disposition home or self-care (01) | DRG 193 ==
LOC: M MSPAV 03-26 13:08 → M MS4PR 04-08 19:47
PROVIDERS: ADMIT Internal Medicine; ATTEND Internal Medicine
PROC: 30233N1 Transfusion of Nonautologous Red Blood Cells into Peripheral Vein, Percutaneous Approach (ICD-10-PCS; principal; 2023-04-02)
DX: I33.0 Acute and subacute infective endocarditis (principal); J15.211 Pneumonia due to Methicillin susceptible Staphylococcus aureus; F11.20 Opioid dependence, uncomplicated; D69.6 Thrombocytopenia, unspecified; D63.8 Anemia in other chronic diseases classified elsewhere; D50.9 Iron deficiency anemia, unspecified; E87.6 Hypokalemia; G47.00 Insomnia, unspecified; E83.42 Hypomagnesemia; R74.01 Elevation of levels of liver transaminase levels; R50.84 Febrile nonhemolytic transfusion reaction; N17.9 Acute kidney failure, unspecified; I26.90 Septic pulmonary embolism without acute cor pulmonale; N00.9 Acute nephritic syndrome with unspecified morphologic changes; R78.81 Bacteremia; N04.9 Nephrotic syndrome with unspecified morphologic changes; Z79.899 Other long term (current) drug therapy; Z20.822 Contact with and (suspected) exposure to COVID-19

== ENCOUNTER 2023-04-12 12:58 | Outpatient (CLI) | payer OTHER ==
[~2023-04-12 12:58] MED LIST: BACTINJ2 IV; DILA2TAB6 PO; ENOX30IN3 SC; FERR1TAB8 PO; FOLI1TAB11 PO; FURO20TA2 PO; FURO40TA2 PO; GABA-1171 PO; MAGN400T2 PO; METH-1177 PO; POTA-136 PO; RISATAB3 PO; [UNRECOGNIZED DRUG - CODE] PO
[2023-04-12] MEDS ORDERED: DALBAVANCIN 1,500 MG in D5W 250 ML IV ONE (14:00)
[2023-04-13] MEDS ORDERED: GABA-1171 PO (10:35)
== END 2023-04-12 14:14 | disposition home or self-care (01) ==
LOC: M OPCLI4PR 12:58 → M MS4PR 13:03 → M OPCLI4PR 14:14
PROVIDERS: ATTEND Internal Medicine
DX: I33.0 Acute and subacute infective endocarditis (principal); J15.211 Pneumonia due to Methicillin susceptible Staphylococcus aureus
CPT/HCPCS: 96365; J0875

== ENCOUNTER → 2023-04-15 | Outpatient (CLI) | payer OTHER ==
[2023-04-15 09:42] LABS: CALCIUM LEVEL 7.6 MG/DL (8.5-10.1); CREATININE FOR GFR 2.44 MG/DL (0.70-1.30); GLOMERULAR FILTRATION RATE 34.9 (>60); MAGNESIUM LEVEL 2.2 MG/DL (1.8-2.4); POTASSIUM SERUM 4.2 MMOL/L (3.5-5.1)
== END ==
LOC: M LAB 08:30
PROVIDERS: ATTEND Internal Medicine
DX: E87.8 Other disorders of electrolyte and fluid balance, not elsewhere classified (principal)

== ENCOUNTER → 2023-04-20 | Outpatient (CLI) | payer OTHER ==
[~2023-04-20] VITALS: Ht 185.4 cm; Wt 93.0 kg
[~2023-04-20] MED LIST changes: +DALBAVANCIN 1,500 MG in D5W 250 ML IV ONE
[2023-04-20 07:44] VITALS: BP 143/90; O2SAT 96
[2023-04-20 08:07] LABS: HEMATOCRIT 27.7 % (42.0-52.0); HEMOGLOBIN 8.4 g/dl (13.5-17.5); MEAN CORPUSCULAR HGB CONC 30.3 g/dl (32.0-36.5); MEAN CORPUSCULAR VOLUME 82.4 fl (80.0-96.0); PLATELET COUNT, AUTOMATED 321 10^3/uL (150-450); RED BLOOD COUNT 3.36 10^6/uL (4.30-6.10)
[2023-04-20 08:30] LABS: C REACTIVE PROTEIN QUANTITATIV 5.6 MG/DL (<1.0)
[2023-04-20 08:31] LABS: CREATININE FOR GFR 2.36 MG/DL (0.70-1.30); GLOMERULAR FILTRATION RATE 36.3 (>60)
[2023-04-20 09:50] VITALS: BP 136/70; O2SAT 94
== END ==
LOC: M INFU 07:13
PROVIDERS: ATTEND Internal Medicine Infectious Disease
DX: I33.0 Acute and subacute infective endocarditis (principal); J15.211 Pneumonia due to Methicillin susceptible Staphylococcus aureus
CPT/HCPCS: 80048; 85027; 86140; 96365; J0875

== ENCOUNTER → 2023-04-21 | Outpatient (REF) | payer OTHER ==
[~2023-04-21] MED LIST changes: -DALBAVANCIN 1,500 MG in D5W 250 ML IV ONE
[2023-04-21 18:51] LABS: CREATININE,RANDOM URINE 27.2 MG/DL; TOTAL PROTEIN,RANDOM URINE 170.8 MG/DL (0.0-14.0)
== END ==
LOC: M LAB REF 17:11
PROVIDERS: ATTEND Internal Medicine Nephrology
DX: N04.9 Nephrotic syndrome with unspecified morphologic changes (principal)

== ENCOUNTER 2023-04-27 10:16 | Emergency (ER) | payer OTHER ==
[~2023-04-27] VITALS: Ht 185.4 cm; Wt 87.0 kg
[2023-04-27 12:49] LABS: BASO % 0.4 % (0.0-1.0); EOS # 0.3 10^3/uL (0.0-0.5); EOS % 2.7 % (0.0-3.0); HEMATOCRIT 27.3 % (42.0-52.0); HEMOGLOBIN 8.3 g/dl (13.5-17.5); LYMPH % 20.7 % (24.0-44.0); MEAN CORPUSCULAR HEMOGLOBIN 24.3 pg (27.0-33.0); MEAN CORPUSCULAR HGB CONC 30.4 g/dl (32.0-36.5); MEAN CORPUSCULAR VOLUME 80.1 fl (80.0-96.0); MONO # 0.7 10^3/uL (0.0-0.8); NEUTROPHILS # 6.5 10^3/uL (1.5-8.5); NEUTROPHILS % 68.8 % (36.0-66.0); PLATELET COUNT, AUTOMATED 330 10^3/uL (150-450); RED BLOOD COUNT 3.41 10^6/uL (4.30-6.10); WHITE BLOOD COUNT 9.5 10^3/uL (4.0-10.0)
[2023-04-27 13:05] LABS: INR 1.61; PROTHROMBIN TIME 18.6 SECONDS (12.5-14.5)
[2023-04-27 13:06] LABS: PARTIAL THROMBOPLASTIN TIME 31.2 SECONDS (24.8-34.2)
[2023-04-27 13:20] LABS: CK-MB VALUE MASS < 1.0 NG/ML (<3.6)
[2023-04-27 13:23] LABS: AMYLASE 26 U/L (30-118)
[2023-04-27 13:24] LABS: ALKALINE PHOSPHATASE 98 U/L (46-116); ALT/SGPT < 9 U/L (7.0-40); AST/SGOT < 8 U/L (<34); BILIRUBIN,DIRECT 0.3 MG/DL (<0.4); BILIRUBIN,TOTAL 0.6 MG/DL (0.3-1.2); BLOOD UREA NITROGEN 27 MG/DL (9-23); CARBON DIOXIDE LEVEL 27 MMOL/L (20-31); CHLORIDE LEVEL 103 MMOL/L (98-107); CPK CREATINE PHOSPHOKINASE 16 U/L (46-171); GLOMERULAR FILTRATION RATE 39.3 (>60); GLUCOSE, FASTING 92 MG/DL (60-100); MB/CK RELATIVE INDEX 6.25 (< OR =4); POTASSIUM SERUM 3.3 MMOL/L (3.5-5.1); SODIUM LEVEL 138 MMOL/L (136-145); TOTAL PROTEIN 6.9 G/DL (5.7-8.2)
[2023-04-27 13:30] LABS: PROCALCITONIN 0.08 ng/ml
[2023-04-27 13:44] LABS: RSV AMPLIFICATION NEGATIVE (NEGATIVE)
[2023-04-27 14:02] VITALS: BP 136/93; TEMP 98.4; O2SAT 96
[2023-04-27] MEDS: POTASSIUM CHLORIDE 10MEQ SR TABLET PO ONE (14:04)
== END 2023-04-27 14:20 | disposition home or self-care (01) ==
LOC: M ED 10:16
DX: R09.1 Pleurisy (principal); I45.81 Long QT syndrome; Z79.899 Other long term (current) drug therapy; Z79.810 Long term (current) use of selective estrogen receptor modulators (SERMs); Z79.82 Long term (current) use of aspirin

== ENCOUNTER → 2023-05-05 | Outpatient (CLI) | payer OTHER | LOC: M WHC 07:23 | PROVIDERS: ATTEND Internal Medicine Infectious Disease | DX: R10.84 Generalized abdominal pain (principal); R16.2 Hepatomegaly with splenomegaly, not elsewhere classified; N28.89 Other specified disorders of kidney and ureter ==

== ENCOUNTER → 2023-05-16 | Outpatient (CLI) | payer OTHER | LOC: M RAD 07:46 | PROVIDERS: ATTEND Internal Medicine Infectious Disease | DX: I33.0 Acute and subacute infective endocarditis (principal); R91.8 Other nonspecific abnormal finding of lung field; J98.4 Other disorders of lung ==

== ENCOUNTER → 2023-05-19 | Outpatient (CLI) | payer OTHER ==
[2023-05-19 13:12] LABS: ALKALINE PHOSPHATASE 200 U/L (46-116); ALT/SGPT < 9 U/L (7.0-40); AST/SGOT 8 U/L (<34); BILIRUBIN,TOTAL 0.6 MG/DL (0.3-1.2); BLOOD UREA NITROGEN 32 MG/DL (9-23); CARBON DIOXIDE LEVEL 27 MMOL/L (20-31); CHLORIDE LEVEL 104 MMOL/L (98-107); CREATININE FOR GFR 1.56 MG/DL (0.70-1.30); GLOMERULAR FILTRATION RATE 58.5 (>60); GLUCOSE, FASTING 85 MG/DL (60-100); POTASSIUM SERUM 5.4 MMOL/L (3.5-5.1); SODIUM LEVEL 136 MMOL/L (136-145); TOTAL PROTEIN 7.7 G/DL (5.7-8.2)
[2023-05-19 13:22] LABS: BASO # 0.1 10^3/uL (0.0-0.2); BASO % 0.8 % (0.0-1.0); EOS # 0.4 10^3/uL (0.0-0.5); EOS % 5.3 % (0.0-3.0); HEMATOCRIT 32.3 % (42.0-52.0); HEMOGLOBIN 9.5 g/dl (13.5-17.5); LYMPH # 1.9 10^3/uL (1.5-5.0); LYMPH % 24.8 % (24.0-44.0); MEAN CORPUSCULAR HEMOGLOBIN 23.2 pg (27.0-33.0); MEAN CORPUSCULAR HGB CONC 29.4 g/dl (32.0-36.5); MEAN CORPUSCULAR VOLUME 78.8 fl (80.0-96.0); MONO # 0.6 10^3/uL (0.0-0.8); MONO % 7.2 % (2.0-8.0); NEUTROPHILS # 4.8 10^3/uL (1.5-8.5); NEUTROPHILS % 61.5 % (36.0-66.0); PLATELET COUNT, AUTOMATED 316 10^3/uL (150-450); WHITE BLOOD COUNT 7.8 10^3/uL (4.0-10.0)
[2023-05-19 13:40] LABS: ERYTHROCYTE SEDIMENTATION RATE 80 mm/hr (0-15)
== END ==
LOC: M PLALAB 10:22
PROVIDERS: ATTEND Internal Medicine Infectious Disease
DX: I33.0 Acute and subacute infective endocarditis (principal)

== ENCOUNTER → 2023-05-25 | Outpatient (REF) | payer OTHER ==
[2023-05-25 18:22] LABS: TOTAL PROTEIN,RANDOM URINE 74.4 MG/DL (0.0-14.0)
[2023-05-25 18:26] LABS: CREATININE,RANDOM URINE 34.9 MG/DL
== END ==
LOC: M LAB REF 17:03
PROVIDERS: ATTEND Internal Medicine Nephrology
DX: N04.9 Nephrotic syndrome with unspecified morphologic changes (principal)

== ENCOUNTER → 2023-08-29 | Outpatient (CLI) | payer OTHER | LOC: M CARPUL 13:36 | PROVIDERS: ATTEND Physician Assistant Medical | DX: I36.8 Other nonrheumatic tricuspid valve disorders (principal); I36.1 Nonrheumatic tricuspid (valve) insufficiency ==

== ENCOUNTER → 2023-11-25 | Outpatient (REF) | payer OTHER ==
[2023-11-28 17:57] LABS: TOTAL PROTEIN,RANDOM URINE 27.4 MG/DL (0.0-14.0)
[2023-11-28 18:00] LABS: CREATININE,RANDOM URINE 109.9 MG/DL
== END ==
LOC: M LAB REF 16:56
PROVIDERS: ATTEND Internal Medicine Nephrology
DX: N04.9 Nephrotic syndrome with unspecified morphologic changes (principal)